=== PATIENT | female | born 2000 | race Caucasian/White ===

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

== ENCOUNTER 2020-01-17 17:53 | Emergency (ER) | payer OTHER ==
[~2020-01-17] VITALS: Ht 172.7 cm; Wt 64.9 kg
[2020-01-17 18:09] VITALS: Ht 172.7 cm; Wt 64.9 kg
[2020-01-17 20:48] LABS: BASOPHIL % 0.4 % (0-2); PLATELET COUNT 257 x10^3mcL (130-400); RED CELL DISTRIBUTION WIDTH 13.4 % (11.5-14.5)
[2020-01-17 20:55] LABS: CALCIUM 9.2 mg/dL (8.5-10.1); CARBON DIOXIDE 25.8 mmol/L (21-32); CHLORIDE SERUM 102 mmol/L (98-107); CREATININE SERUM 0.5 mg/dL (0.6-1.0); GFR1 > 60 mL/min; GLUCOSE SERUM 120 mg/dL (74-106); SODIUM SERUM 140 mmol/L (136-145)
[2020-01-17 21:04] LABS: ALBUMIN 3.9 g/dL (3.4-5.0); ALKALINE PHOSPHATASE 82 U/L (46-116); ALT/SGPT 19 U/L (14-59); AST/SGOT 18 U/L (15-37); BILIRUBIN TOTAL 0.3 mg/dL (0.20-1.00); TOTAL PROTEIN, SERUM 7.7 g/dL (6.4-8.2)
[2020-01-17 22:50] VITALS: BP 119/60
== END 2020-01-17 22:51 | disposition home or self-care (01) ==
LOC: ED 17:53
PROVIDERS: Specialist
DX: N39.0 Urinary tract infection, site not specified (principal); R11.10 Vomiting, unspecified; E86.0 Dehydration
CPT/HCPCS: J0696; J1885; J7042; Q0162